=== PATIENT | female | born 1990 | race Caucasian/White ===

== ENCOUNTER 2019-08-25 18:43 | Observation (INO) | payer MEDICAID ==
[~2019-08-25] VITALS: Ht 157.5 cm; Wt 77.1 kg
[2019-08-25 21:02] LABS: CLARITY URINE CLOUDY (CLEAR); COLOR URINE YELLOW (YELLOW); KETONES URINE NEGATIVE (NEGATIVE); LEUKOCYTE ESTERASE URINE 3+ (NEGATIVE); NITRITE URINE NEGATIVE (NEGATIVE); OCCULT BLOOD URINE NEGATIVE (NEGATIVE); PH URINE 5.5 (4.5-8.0); PROTEIN URINE NEGATIVE (NEGATIVE); SPECIFIC GRAVITY URINE 1.006 (1.005-1.030); UROBILINOGEN URINE 0.2 E.U./dL (0.2-1.0)
[2019-08-25] MEDS ORDERED: CEFAZOLIN SODIUM 1000MG/VIAL IV ONE (22:30)
[2019-08-25] MEDS ORDERED: LACTATED RINGERS 1,000 ML IV ONE (22:40)
[2019-08-25] MEDS ORDERED: CEFAZOLIN 2000MG in DEXTROSE 5% WATER 100ML IV NR (22:45)
[2019-08-25] MEDS ORDERED: FOLI-43 PO (23:13)
[2019-08-25] MEDS ORDERED: PNV1TABL50 PO (23:13)
[2019-08-25] MEDS ORDERED: FERR-71 PO (23:13)
== END 2019-08-26 01:35 | disposition home or self-care (01) ==
LOC: 8EST NSY 18:43 → 8 EST A/PP 18:48
PROVIDERS: ADMIT Obstetrics & Gynecology; ATTEND Obstetrics & Gynecology
DX: O42.912 Preterm premature rupture of membranes, unspecified as to length of time between rupture and onset of labor, second trimester (principal); O26.892 Other specified pregnancy related conditions, second trimester; R10.9 Unspecified abdominal pain; Z3A.26 26 weeks gestation of pregnancy
CPT/HCPCS: 76700; 76805; 81003; 96365; 99281; G0378; J0690; J7060; 96360; 96361